=== PATIENT | male | born 1975 | race Caucasian/White ===

== ENCOUNTER → 2017-04-27 | Outpatient (CLI) | payer BC ==
--- NOTE | ~2017-04-27 | EKG ---
[address] [address] ELECTROCARDIOGRAM REPORT Name: NESSA URIOSTEGUI [id number] Admission: 04/27/17 Attend Phys: Anjum Musa Discharge: Date of : 79 Report #: [id number] THIS REPORT FOR: //name// [facility] Test Date: 2017-04-27 Test Time: 17:59:36 Pat Name: NESSA URIOSTEGUI Department: Room: Gender: Broadcast Operations Director: Ibis JOHANSEN : 1975 Requested By: Juan Nolan Order Number: [id number] MD: Candelario Swartz Measurements Intervals [place] Rate: 72 P: 11 WA: 156 QRS: 44 QRSD: 86 T: 28 QT: 379 QTc: 415 Interpretive Statements Sinus rhythm Normal No previous ECG available for comparison Electronically Signed On 04-28-2017 8:05:02 CDT by Candelario Swartz [email or web address] <ELECTRONICALLY SIGNED> By: Candelario Swartz MD, [facility] 04/28/17 0805 1759 1759 Candelario Swarzt MD, FACC /EPI
== END ==
LOC: RAD 17:45
DX: Z01.818 Encounter for other preprocedural examination (principal); R22.2 Localized swelling, mass and lump, trunk

== ENCOUNTER → 2019-07-05 | Day surgery (SDC) | payer BC, OTHER ==
[~2019-07-05] VITALS: Ht 172.7 cm; Wt 83.9 kg
[~2019-07-05] MED LIST: CANDESARTAN CIL32 MG PO; NORCO 5-325 TA1 EAC1 PO; TURMERIC500 M2 PO; VITAMIN B-1250 MC2 PO; VITAMIN D1000 UNI2 PO; ZYRTEC10 M2 PO
[2019-07-05 08:45] VITALS: BP 122/77
--- NOTE | 2019-07-05 09:06 | EKG ---
[address] [employer] [place] [address] ELECTROCARDIOGRAM REPORT Name: NESSA URIOSTEGUI Room #: REG [facility]#: [id number] Admission: 07/05/19 Attend Phys: Nirmal Plata MD Discharge: Date of : 79 Report #: [id number] THIS REPORT FOR: //name// [facility] Test Date: 2019-07-05 Test Time: 08:09:56 Pat Name: NESSA URIOSTEGUI Department: Room: Gender: Circular Stuffer: RACHEL : 1975 Requested By: Nirmal Plata Order Number: [id number] MD: Candelario Swartz Measurements Intervals [place] Rate: 85 P: 43 HI: 153 QRS: 36 QRSD: 81 T: 25 QT: 342 QTc: 407 Interpretive Statements Sinus rhythm Normal tracing Compared to ECG 04/27/2017 17:59:36 No significant changes Electronically Signed On 07-05-2019 9:06:01 BIODIESEL ENGINEERING MANAGER by Candelario Swartz [email or web address] <ELECTRONICALLY SIGNED> By: Candelario Swartz MD, [facility] 07/05/19905 8 8 Candelario Swartz MD, FACC /EPI
[2019-07-05 14:05] VITALS: BP 122/77
--- NOTE | 2019-07-09 11:08 | PATH ---
[facility] [address] [place] [address] PATHOLOGY RPT PROCEDURE Name: MANPREET URIOSTEGUI Tony Room #: REG [facility] M.R.#: [id number] Admission: 07/05/19 Date of : 79 Discharge: Report #: [id number] Path Case #: [id number] [facility] Accession Number: [id number] . 01 Material submitted: . face - NEUROFIBROMAS OF FACE, NECK, TRUNK, AND BILATERAL ARM. Modifiers: bilateral . 01 Clinical history: . Neurofibromatosis. . 02 Diagnosis: Skin, neurofibromas of face, neck, trunk and bilateral arms, excision: - Consistent with neurofibroma, multiple. (IUV:building code administrator; 07/06/2019) [facility] 07/06/2019 1735 Local . 02 Comment: There is no nuclear atypia, pleomorphism, increase in mitotic activity, or necrosis identified. 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 There is no evidence of malignancy within the sample. (IUV:building code administrator; 07/06/2019) . 02 Electronically signed: . Mile Dietrich MD, Pathologist NPI- [id number] . 01 Gross description: . Received in formalin labeled "Manpreet Uriostegui, neurofibromas of face, neck, trunk, and bilateral arms" are 17 batista-pink soft tissue nodules with attached skin and fibroadipose tissue measuring in aggregate 8.0 x 6.0 x 0.9 cm and ranging from 0.5-2.0 cm in greatest dimension. The external surfaces are inked entirely black. Circulation Worker sections are submitted in cassettes A1-A4, with all pieces sampled. ([facility]; 07/05/2019) [facility] 07/05/2019 1904 Local . 02 Pathologist provided ICD-10: D36.11, D36.12, D36.17 . 02 CPT . 926342 Specimen Comment: A courtesy copy of this report has been sent to [phone], [phone] Specimen Comment: [id number] Specimen Comment: Report sent to and Performed at: [address] [place] [address] PATHOLOGY RPT PROCEDURE Name: MANPREET URIOSTEGUI Room #: REG [facility] M.R.#: [id number] Admission: 07/05/19 Date of : 79 Discharge: Report #: [id number] Path Case #: [id number] [address] [facility] [address], [place] [id number] MD Rick Gayle MD Phone: [phone] Performed at: [address] [id number] MD Mile Dietrich MD Phone: [phone]
--- NOTE | 2019-08-10 14:01 | H ---
[facility] [place] [address] HISTORY AND PHYSICAL Name: NESSA URIOSTEGUI Room #: REG [facility].#: [id number] Admission: 07/05/19 Attend Phys: Nirmal Plata MD Discharge: Date of : 79 Report #: [id number] THIS REPORT FOR: //name// CC: Nirmal Nolan DATE OF SERVICE: 07/05/2019 PREOPERATIVE DIAGNOSIS: Neurofibromatosis. 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 The patient since his early 20s started to have growth. This is scattered on his face, neck and trunk area. The patient has been to [place] for treatment of these with Dr. Pope. The patient is now having recurrent growth and a large one over the left pubic area. He is concerned because of the increasing size. Because Dr. Pope retired, the patient is seeking treatment locally. I have removed several of these neurofibromas that are quite large from his mom. The patient is here for excision of multiple neurofibromatosis, face, neck, chest, trunk anterior and posterior with a large one over the left pubic area that is growing. PAST MEDICAL HISTORY: Neurofibromatosis. No heart disease, lung disease, diabetes. No kidney or liver disease, no bleeding disorder. No history of blood clot. The patient does not have any bleeding disorder. PAST SURGICAL HISTORY: Multiple neurofibroma removal in [place]. Vasectomy in 2001, wisdom tooth in 1995. ALLERGIES: He is not allergic to anything. FAMILY HISTORY: There is high blood pressure, neurofibromatosis, mother's side and MS on the father's side. SOCIAL HISTORY: The patient works in clerical field. Does not smoke. Has 1-3 drinks a week. REVIEW OF SYSTEMS: No chest pain, shortness of breath or palpitation. PHYSICAL EXAMINATION: SKIN: The patient has diffuse neurofibromatosis on his face, particularly the forehead area, in the neck and the larger ones over the trunk. There is one that is 3 cm in the left pubic area. GENERAL: The patient moves all extremities well. EXTREMITIES: No cyanosis, clubbing or edema. Motor and sensory exams are unremarkable. [facility] [address] [place] [address] HISTORY AND PHYSICAL Name: NESSA URIOSTEGUI Room #: REG [facility]#: [id number] Admission: 07/05/19 Attend Phys: Nirmal Plata MD Discharge: Date of : 79 Report #: [id number] HEENT: Pupils react to light. Extraocular muscles are intact. Sclerae is nonicteric. NECK: Soft and supple with no tenderness. LUNGS: Clear to auscultation. HEART: Regular rate and rhythm. No murmur or gallop. ABDOMEN: Soft, nondistended, nontender. IMPRESSION: The patient with neurofibromatosis inherited from the mother's side. The patient has regrowth of multiple lesions since his last treatment. Particularly, large one is developed in the left pubic area. The patient does have a malignant potential from these growth and also discomfort. The patient does have discomfort in the left pubic area and as it has gotten larger, he has more discomfort in that area. The patient is here for treatment of neurofibromatosis with electrodessication and excision of the larger lesions in the trunk, neck area. The patient understands the procedure since he has had these done already. The patient wishes to proceed. <ELECTRONICALLY SIGNED> By: Nirmal Plata MD 08/10/19 1401 2217 2250 Nirmal Plata MD /nt
--- NOTE | 2019-08-10 14:01 | O ---
[facility] [place] [address] OPERATIVE REPORT Name: NESSA URIOSTEGUI Room #: REG [facility]#: [id number] Admission: 07/05/19 Attend Phys: Nirmal Plata MD Discharge: Date of : 79 Report #: [id number] THIS REPORT FOR: //name// CC: Nirmal Nolan PREOPERATIVE DIAGNOSIS: Neurofibromatosis. POSTOPERATIVE DIAGNOSIS: Neurofibromatosis. PROCEDURES PERFORMED: 1. Electrodessication of smaller neurofibroma. 2. Excision of multiple lipomas of the face, neck, trunk, left arm, right arm. ANESTHESIA: General. SURGEON: Nirmal Plata MD COMPLICATIONS: None. ESTIMATED BLOOD LOSS: 50 mL. FINDING: Electrodessication of 152 neurofibromas of the face and forehead. 50 spots in the neck, 110 in the chest and abdomen, 47 in the right arm, 30 in the left arm. Excision and closure of 5 fibroadenoma of the face and neck, 20 in the trunk, 5 in the right arm, 5 in the left arm. PROCEDURE NOTE: With the patient's face and neck prepped and draped in sterile fashion with Betadine multiple neurofibroma was treated with electrodessication using a needle tip cautery, initially the setting is at 15. I tried to lower setting and seemed to have better result at 15. 50 areas in the face was treated and 98 was in the forehead. There were 5 lesions in the face was removed. The entire trunk anteriorly was then prepped and draped with ChloraPrep. Electrodessication was performed of 110 lesions in the trunk, anterior chest and abdomen and 50 in the neck. 20 excisions were performed of the chest and neck area. The lesions that were excised was performed with a small ellipse of the skin over the mass. These all measured over a centimeter. He has a large one in the left pubis. The skin was closed with 5-0 PDS and 4-0 PDS in a subcuticular fashion. Dermabond was used for these areas. On the face, the neurofibroma were kind of be little smaller and these incisions were closed with 6-0 nylon in interrupted external suture. The left arm was then prepped out separately and then performed. A total of 5 excisional lesions were performed on the right, 5 on the left. Electrocautery performed on [address] [address] OPERATIVE REPORT Name: URIOSTEGUINESSA Room #: REG [facility]#: [id number] Admission: 07/05/19 Attend Phys: Nirmal Plata MD Discharge: Date of : 79 Report #: [id number] right arm, 30 in the left arm. The patient did tolerate procedure well. Taken to recovery room. <ELECTRONICALLY SIGNED> By: Nirmal Plata MD 08/10/19 1401 2133 2212 Nirmal Plata MD /nt
== END | disposition home or self-care (01) ==
LOC: OR 07:38
DX: D36.11 Benign neoplasm of peripheral nerves and autonomic nervous system of face, head, and neck (principal); D36.12 Benign neoplasm of peripheral nerves and autonomic nervous system, upper limb, including shoulder; D36.17 Benign neoplasm of peripheral nerves and autonomic nervous system of trunk, unspecified; Z98.890 Other specified postprocedural states; Z79.899 Other long term (current) drug therapy; Z98.52 Vasectomy status; Z82.0 Family history of epilepsy and other diseases of the nervous system; Z82.49 Family history of ischemic heart disease and other diseases of the circulatory system
CPT/HCPCS: 64788; 0420T; 50010; 50101; 50386; 50403; 54118; 56525; 56526; 56805; 62110; 62900; 70005

== ENCOUNTER → 2021-05-11 | Outpatient (CLI) | payer BC, OTHER | LOC: RAD 15:23 | PROVIDERS: ATTEND Nurse Practitioner | DX: Z01.818 Encounter for other preprocedural examination (principal) ==